=== PATIENT | female | born 1995 | race Hispanic/Latino ===

== ENCOUNTER 2017-04-28 10:12 | Emergency (ER) | payer OTHER ==
[2017-04-28] MEDS ORDERED: Dexamethasone 10 MG/ML VIAL ONE (11:00)
--- NOTE | 2017-04-28 11:29 | RAD ---
CHEST 1 VIEW: Date: 04/28/17 HISTORY: Cough. COMPARISON: 09/08/12. FINDINGS: Cardiac silhouette is magnified by projection. Pulmonary vasculature is unremarkable. Mediastinum is midline. There is no lobar consolidation or evidence of pneumothorax. Opacity at the right apex on th e previous exam is no longer evident. IMPRESSION: No active cardiopulmonary abnormalities are demonstrated. POS: H
== END 2017-04-28 12:29 | disposition home or self-care (01) ==
LOC: SCSER 10:12
DX: O99.513 Diseases of the respiratory system complicating pregnancy, third trimester (principal); J30.9 Allergic rhinitis, unspecified; Z3A.39 39 weeks gestation of pregnancy
CPT/HCPCS: 71010; 96372; J1100

== ENCOUNTER 2017-05-16 15:55 | Emergency (ER) | payer OTHER ==
[2017-05-16] MEDS ORDERED: Acetaminophen 500 MG TAB ONE (16:34)
[2017-05-16 16:51] LABS: Bilirubin Moderate (Negative); Blood, Urine Moderate (Negative); Glucose, Urine (Dipstick) Negative (Negative); Ketone, Urine 80 mg/dL (Negative); Nitrite Negative (Negative); Protein, Urine (Dipstick) 100 mg/dL (Neg-Trace); Urobilinogen 0.2 mg/dL (0.2-1.0)
[2017-05-16 17:21] LABS: Bacteria/HPF 2+ HPF (None Seen)
== END 2017-05-16 18:35 | disposition home or self-care (01) ==
LOC: SCSER 15:55
DX: O86.22 Infection of bladder following delivery (principal); O99.89 Other specified diseases and conditions complicating pregnancy, childbirth and the puerperium; R10.9 Unspecified abdominal pain; O99.53 Diseases of the respiratory system complicating the puerperium; J45.909 Unspecified asthma, uncomplicated
CPT/HCPCS: 81003; 81015; 87086; 99284

== ENCOUNTER 2018-04-07 23:02 | Emergency (ER) | payer BC, OTHER ==
[2018-04-07] MEDS ORDERED: Famotidine/PF 20 mg/2ml Vial ONE (23:25)
[2018-04-07] MEDS ORDERED: Dicyclomine 20 MG TAB ONE (23:25)
[2018-04-07] MEDS ORDERED: Metoclopramide HCl 10 MG/2 ML VIAL ONE (23:25)
[2018-04-07 23:52] LABS: #Eosinphils 0.1 thou/uL (0.0-0.7); #Lymphocytes 0.8 thou/uL (1.20-3.40); #Monocytes 0.5 thou/uL (0.11-0.59); #Neutrophils 5.2 thou/uL (1.40-6.50); %Basophils 0.6 % (0.0-1.0); %Eosinophils 0.9 % (0.0-10.0); %Lymphocytes 12.4 % (21.0-51.0); %Monocytes 7.9 % (0.0-10.0); %Neutrophils 78.2 % (42.0-75.0); Mean Corpuscular HGB CONC 33.2 g/dL (32.0-36.0); Mean Corpuscular Hemoglobin 27.9 pg (27.0-31.0); Mean Corpuscular Volume 84.1 fL (78.0-98.0); Mean Platelet Volume 10.3 fL (7.4-10.4); Platelet Count 171 thou/uL (130-400); RBC Distribution Width 12.2 % (11.5-14.5); White Blood Cell (WBC) Count 6.6 thou/uL (4.8-10.8)
[2018-04-07 23:59] LABS: BHCG - Serum Negative (NEGATIVE); Pregs Control Background? CLEAR/WHITE (CLR/WHITE); Pregs Control Bar Appear? YES (CONTROL BAR)
[2018-04-08 00:05] LABS: ALT (SGPT) 37 U/L (8-55); AST (SGOT) 22 U/L (5-34); Albumin 4.5 g/dL (3.5-5.0); Alkaline Phosphatase 65 U/L (40-150); Anion Gap 13 mmol/L (10-20); BUN (Urea Nitrogen) 8 mg/dL (7.0-18.7); Bilirubin, Total 1.1 mg/dL (0.2-1.2); Calc. Creatinine Clearance 0 mL/min (70-130); Calcium 9.1 mg/dL (7.8-10.44); Carbon Dioxide 22 mmol/L (22-29); Chloride 108 mmol/L (98-107); Estimated GFR-MDRD Greater than 90; Globulin 2.8 g/dL (2.4-3.5); Glucose 104 mg/dL (70-105); Lipase 8 U/L (8-78); Potassium 3.4 mmol/L (3.5-5.1); Protein, Total 7.3 g/dL (6.0-8.3); Sodium 140 mmol/L (136-145)
[2018-04-08] MEDS ORDERED: Ondansetron PF 4 MG/2 ML Vial ONE (00:09)
[2018-04-08 00:13] LABS: Bilirubin Small (Negative); Blood, Urine Negative (Negative); Clarity Cloudy (Clear); Glucose, Urine (Dipstick) Negative (Negative); Leukocyte Trace (Negative); Nitrite Negative (Negative); Protein, Urine (Dipstick) 30 mg/dL (Neg-Trace); Urobilinogen 0.2 mg/dL (0.2-1.0); pH, Urine 5.5 (5.0-9.0)
[2018-04-08 00:16] LABS: Specific Gravity, Urine 1.038 (1.002-1.036)
[2018-04-08 00:21] LABS: Bacteria/HPF 1+ HPF (None Seen); RBC/HPF 0-3 HPF (0-3)
[2018-04-08 00:22] LABS: Crystals/HPF 3+ AMORPH PHOS HPF (Negative); Hyaline Casts/LPF 0-3 HYALINE CAST LPF (0-3 Hyaline)
[2018-04-08] MEDS ORDERED: Nitrofurantoin Macrocrystal 50 MG CAP ONE (00:36)
== END 2018-04-08 00:50 | disposition home or self-care (01) ==
LOC: SCSER 23:02
DX: N39.0 Urinary tract infection, site not specified (principal); R11.2 Nausea with vomiting, unspecified; J45.909 Unspecified asthma, uncomplicated; R19.7 Diarrhea, unspecified; Z79.01 Long term (current) use of anticoagulants
CPT/HCPCS: 80053; 81003; 81015; 83690; 84703; 85025; 87086; 96365; 96375; J2405; J2765; S0028

== ENCOUNTER 2018-06-07 21:36 | Emergency (ER) | payer BC ==
[2018-06-07] MEDS ORDERED: Ibuprofen 200 MG TAB ONE (22:09)
== END 2018-06-07 22:54 | disposition home or self-care (01) ==
LOC: ERS 21:36
DX: J02.9 Acute pharyngitis, unspecified (principal); J45.909 Unspecified asthma, uncomplicated
CPT/HCPCS: 87081; 87430; 87804; 99283

== ENCOUNTER 2018-12-01 20:45 | Emergency (ER) | payer BC ==
[2018-12-01 21:22] LABS: #Basophils 0.1 thou/uL (0.0-0.2); #Eosinphils 0.4 thou/uL (0.0-0.7); #Lymphocytes 2.3 thou/uL (1.20-3.40); #Monocytes 0.7 thou/uL (0.11-0.59); #Neutrophils 5.8 thou/uL (1.40-6.50); %Basophils 0.8 % (0.0-1.0); %Eosinophils 3.8 % (0.0-10.0); %Lymphocytes 24.6 % (21.0-51.0); %Monocytes 7.7 % (0.0-10.0); %Neutrophils 63.1 % (42.0-75.0); Hemoglobin 12.6 g/dL (12.0-16.0); Mean Corpuscular HGB CONC 34.5 g/dL (32.0-36.0); Mean Corpuscular Hemoglobin 29.5 pg (27.0-31.0); Mean Corpuscular Volume 85.6 fL (78.0-98.0); Mean Platelet Volume 9.2 fL (7.4-10.4); Platelet Count 200 thou/uL (130-400); RBC Distribution Width 12.6 % (11.5-14.5); Red Blood Cell (RBC) Count 4.25 mill/uL (4.20-5.40); White Blood Cell (WBC) Count 9.2 thou/uL (4.8-10.8)
[2018-12-01] MEDS ORDERED: Acetaminophen 500 MG TAB ONE (21:23)
[2018-12-01] MEDS ORDERED: Metoclopramide HCl 10 MG/2 ML VIAL ONE (21:23)
[2018-12-01 21:37] LABS: ALT (SGPT) 16 U/L (8-55); AST (SGOT) 14 U/L (5-34); Albumin 4.1 g/dL (3.5-5.0); Alkaline Phosphatase 68 U/L (40-150); Anion Gap 13 mmol/L (10-20); BUN (Urea Nitrogen) 5 mg/dL (7.0-18.7); Bilirubin, Total 0.3 mg/dL (0.2-1.2); Calc. Creatinine Clearance 0 mL/min (70-130); Calcium 9.6 mg/dL (7.8-10.44); Carbon Dioxide 23 mmol/L (22-29); Chloride 105 mmol/L (98-107); Estimated GFR-MDRD Greater than 90; Globulin 3.1 g/dL (2.4-3.5); Glucose 67 mg/dL (70-105); Lipase 12 U/L (8-78); Potassium 3.7 mmol/L (3.5-5.1); Protein, Total 7.2 g/dL (6.0-8.3); Sodium 137 mmol/L (136-145)
--- NOTE | 2018-12-01 21:37 | CT ---
EXAM: CT brain without contrast HISTORY: Headache COMPARISON: None TECHNIQUE: Multiple contiguous axial images were obtained and a CT of the brain without contrast. FINDINGS: The brain is normal in morphology and attenuation without focal lesions or confluent areas of infarction. There is no evidence of hydrocephalus, intracranial hemorrhage, or extra-axial fluid collection. The calvarium and overlying soft tissues are unremarkable. The visualized paranasal sinuses and masto id air cells are well aerated. IMPRESSION: No evidence of acute intracranial abnormality
[2018-12-01 22:11] LABS: Bilirubin Negative (Negative); Blood, Urine Negative (Negative); Clarity Slightly Cloudy (Clear); Glucose, Urine (Dipstick) Negative (Negative); Leukocyte Small (Negative); Nitrite Negative (Negative); Protein, Urine (Dipstick) Negative (Neg-Trace); Urobilinogen 0.2 mg/dL (Less than 2)
[2018-12-01 22:12] LABS: Bacteria/HPF Rare-Few HPF (None Seen); RBC/HPF 0-3 HPF (0-3); Squamous Epithelial 0-3 HPF (0-3); WBC/HPF 0-3 HPF (0-3)
== END 2018-12-01 22:38 | disposition home or self-care (01) ==
LOC: SCSER 20:45
DX: O99.89 Other specified diseases and conditions complicating pregnancy, childbirth and the puerperium (principal); R51 Headache; Z3A.11 11 weeks gestation of pregnancy
CPT/HCPCS: 36415; 70450; 80053; 81003; 81015; 83690; 85025; 87086; 96365; J2765

== ENCOUNTER 2019-02-07 21:36 | Day surgery (SDC) | payer BC, OTHER ==
[2019-02-07 22:07] VITALS: BMI 36.3
--- NOTE | 2019-02-07 22:53 | PDOC.LDHP ---
Labor and Delivery H&P Chief complaint: abdominal pain HPI: 23 y/o at 22w2d, patient of Dr. Gr, presents with vulvar itching and pain, as well as epigastric pain, worse after eating. Denies VB, LOF, ctx, or other concerns. ROS neg for HEENT, cv, pulm, gi, gu, neuro, psych, skin, musculoskeletal or constitutional symptoms other than mentioned above. OB History Details: 2 prior term LTCS, hx preeclampsia Current complications: none Past Medical History: GERD Anxiety Depression Migraines Current medications: pre- vitamins Previous surgical history: low tranverse CS (x2) Allergies/Adverse Reactions: Allergies Allergy/AdvReac Type Severity Reaction Status Date / Time No Known Allergies Allergy Verified 02/07/19 22:02 Social history: none - Physical Exam Vital signs reviewed and normal: yes General: NAD, resting Lungs: nonlabored breathing Abdomen: gravid Extremeties: no edema - Vaginal Exam cm dilated: 0 Effacement: 0% Station: -3 - Assessment 23 y/o at 22w2d with likely yeast infection, VP3 pending, and GERD. + FHTs - Plan -: D/c home with precautions. Advised to keep all appointments. Discussed Monistat for treatment of yeast. Will call if VP3 results indication need for other treatment. Advised to start Zantac 150mg daily for heartburn.
--- NOTE | 2019-02-09 07:41 | PDOC.EVN ---
Event Note - Event Note Event Note: VP3 shows BV and Dyan. Dr. Gr contacted re; these results.
== END 2019-02-07 23:05 | disposition home or self-care (01) ==
LOC: L&D/OP 21:36
PROVIDERS: ATTEND Obstetrics & Gynecology
DX: O98.812 Other maternal infectious and parasitic diseases complicating pregnancy, second trimester (principal); B37.9 Candidiasis, unspecified; O23.592 Infection of other part of genital tract in pregnancy, second trimester; B96.89 Other specified bacterial agents as the cause of diseases classified elsewhere; O99.612 Diseases of the digestive system complicating pregnancy, second trimester; K21.9 Gastro-esophageal reflux disease without esophagitis; Z3A.22 22 weeks gestation of pregnancy
CPT/HCPCS: 87480; 87510; 87660; 99283

== ENCOUNTER 2019-05-28 09:47 | Inpatient (IN) | payer BC, OTHER ==
[2019-05-28] MEDS ORDERED: Ondansetron PF 4 MG/2 ML Vial IVP PRN ×3 (10:02→21:37)
[2019-05-28] MEDS ORDERED: Promethazine HCl 25 MG/ML VIAL IM PRN ×3 (10:02→21:37)
[2019-05-28] MEDS ORDERED: hydrALAZINE 20 MG/ML VIAL SLOW IVP PRN ×2 (10:02→21:37)
--- NOTE | 2019-05-28 10:07 | PDOC.LDHP ---
Labor and Delivery H&P Chief complaint: scheduled section HPI: 23 y/o at 38 and 0/7 weeks for repeat 3rd . Patient has CHTN and has done weekly testing. Current gestational age (weeks): 38 Due date: 06/11/18 Grav: 3 Para: 2 Current complications: hypertension Abnormal US findings: No Current medications: pre- vitamins Previous surgical history: low tranverse CS Allergies/Adverse Reactions: Allergies Allergy/AdvReac Type Severity Reaction Status Date / Time No Known Allergies Allergy Verified 02/07/19 22:02 Social history: none - Physical Exam Vital signs reviewed and normal: yes General: NAD Heart: RRR Lungs: CTAB Abdomen: gravid Extremeties: no edema FHT: category 1 - Assessment L&D Assessment: scheduled repeat section - Plan Plan: admit to L&D, to OR for section
[2019-05-28] MEDS ORDERED: CEFAZOLIN 2 GM in Premix Bag 1 BAG IVPB SCH (10:15)
[2019-05-28] MEDS ORDERED: Bicitra 30 ML UDCUP PO SCH (10:15)
[2019-05-28 11:07] VITALS: BMI 41.7
[2019-05-28] MEDS: Lactated Ringer's 1,000 ML IV SCH ×2 (11:20→18:54)
[2019-05-28 11:25] LABS: Hemoglobin 10.3 g/dL (12.0-16.0); Mean Corpuscular HGB CONC 33.9 g/dL (32.0-36.0); Mean Corpuscular Hemoglobin 27.1 pg (27.0-31.0); Mean Corpuscular Volume 79.9 fL (78.0-98.0); Platelet Count 243 thou/uL (130-400); RBC Distribution Width 14.1 % (11.5-14.5); Red Blood Cell (RBC) Count 3.79 mill/uL (4.20-5.40); White Blood Cell (WBC) Count 11.7 thou/uL (4.8-10.8)
[2019-05-28 12:06] LABS: Syphilis Antibody Nonreactive (Nonreactive); Syphilis Antibody Index 0.02 S/CO (<1.00 Non-Reactive)
[2019-05-28 12:07] LABS: Hep B Surf Ag Non-Reactive S/CO (NonReactive)
[2019-05-28] MEDS ORDERED: Metoclopramide HCl 10 MG/2 ML VIAL ONE (12:37)
[2019-05-28] MEDS ORDERED: ePHEDrine/0.9% NaCl/PF SYRINGE 50 mg/10 ml ONE (12:37)
[2019-05-28] MEDS ORDERED: PHENYLEPHRINE-NS 100 MCG/ML 10 ML SYRINGE ONE (12:37)
[2019-05-28] MEDS ORDERED: MORPHINE 5 MG/10 ML PF VIAL ONE (12:37)
[2019-05-28] MEDS ORDERED: Fentanyl 100 MCG/2 ML VIAL ONE (12:37)
[2019-05-28] MEDS ORDERED: Ondansetron PF 4 MG/2 ML Vial ONE (12:37)
[2019-05-28] MEDS ORDERED: Oxytocin 10 UNITS/ML VIAL ONE (12:38)
[2019-05-28] MEDS ORDERED: L&D-Morphine 4 MG/ML VIAL SLOW IVP PRN (14:27)
[2019-05-28] MEDS ORDERED: Naloxone HCl 0.4 mg/ml Vial IVP PRN ×2 (14:27)
[2019-05-28] MEDS ORDERED: Naloxone HCl 0.4 mg/ml Vial IV PRN (14:27)
[2019-05-28] MEDS ORDERED: HYDROmorphone 2 MG/ML VIAL SLOW IVP PRN (14:27)
[2019-05-28] MEDS ORDERED: Promethazine HCl 25 MG SUPP PR PRN (14:27)
[2019-05-28] MEDS ORDERED: Ondansetron HCl/PF 4 MG/2 ML Vial IVP PRN (14:27)
[2019-05-28] MEDS ORDERED: Ketorolac Tromethamine 30 MG/ML VIAL IVP SCH (14:30)
[2019-05-28] MEDS ORDERED: Communication Order-Pharmacy FS SCH (14:30)
[2019-05-28] MEDS ORDERED: NS / Oxytocin 40 units/1000ml 1,000 ML ONE (15:24)
[2019-05-28] MEDS ORDERED: Meperidine HCl/PF 25 MG/ML VIAL ONE ×2 (15:49→16:13)
[2019-05-28] MEDS: Meperidine HCl/PF 25 MG/ML VIAL SLOW IVP PRN ×2 (15:51→16:16)
[2019-05-28] MEDS: Ketorolac Tromethamine 30 MG/ML VIAL IVP PRN (17:15)
[2019-05-28] MEDS ORDERED: FLU VACC QS2019-20(6MOS UP)/PF 60 MCG/0.5 ML SYRINGE IM ONE (20:00)
[2019-05-28] MEDS ORDERED: Acetaminophen 325 MG TAB PO PRN (20:36)
[2019-05-28] MEDS ORDERED: Acetaminophen 1,000 MG in Premix Bag 1 BAG IVPB SCH (20:45)
[2019-05-28] MEDS ORDERED: Lanolin Ointment 7 GM TUBE TOP PRN (21:37)
[2019-05-28] MEDS ORDERED: Misoprostol 200 MCG TAB PR PRN (21:37)
[2019-05-28] MEDS ORDERED: Bisacodyl 10 MG SUPP PR PRN (21:37)
[2019-05-28] MEDS ORDERED: NS / Oxytocin 40 units/1000ml 1,000 ML IV SCH (21:45)
[2019-05-28] MEDS: Simethicone Chewable 80 MG TAB PO PRN (23:59)
[2019-05-29] MEDS: Ketorolac Tromethamine 30 MG/ML VIAL IVP PRN ×3 (00:07→16:57)
[2019-05-29] MEDS ORDERED: Zolpidem Tartrate 5 MG TAB PO PRN (02:30)
[2019-05-29] MEDS: HYDROcodone/Acetaminophen 5/325 mg Tablet PO PRN ×4 (03:17→21:34)
[2019-05-29] MEDS ORDERED: Sodium Chloride 0.9% 10 ML ONE (05:49)
[2019-05-29] MEDS: diphenhydrAMINE 50 MG/ML VIAL IVP PRN ×2 (05:54→14:01)
[2019-05-29 07:44] LABS: Hemoglobin 8.8 g/dL (12.0-16.0); Mean Corpuscular HGB CONC 32.5 g/dL (32.0-36.0); Mean Corpuscular Hemoglobin 26.2 pg (27.0-31.0); Mean Corpuscular Volume 80.5 fL (78.0-98.0); Mean Platelet Volume 8.7 fL (7.4-10.4); Platelet Count 194 thou/uL (130-400); RBC Distribution Width 13.9 % (11.5-14.5); Red Blood Cell (RBC) Count 3.34 mill/uL (4.20-5.40); White Blood Cell (WBC) Count 11.1 thou/uL (4.8-10.8)
[2019-05-29] MEDS: Prenatal Vitamin 1 TAB PO SCH (08:30)
[2019-05-29] MEDS: Docusate Calcium (SURFAK) 240 MG CAP PO SCH ×2 (08:30→21:36)
[2019-05-29] MEDS ORDERED: FLU VACC QS2019-20(6MOS UP)/PF 60 MCG/0.5 ML SYRINGE IM ONE (09:00)
[2019-05-29] MEDS ORDERED: Measles/Mumps/Rubella 10 MCG/0.5 ML VIAL SC ONE (09:00)
[2019-05-29] MEDS ORDERED: Varicella virus, LIVE 0.5 ML VIAL SC ONE (09:00)
[2019-05-29] MEDS ORDERED: Adacel (T-DAP) 0.5 ML SYRINGE IM ONE (09:00)
[2019-05-29] MEDS: Lactated Ringer's 1,000 ML IV SCH ×3 (11:43→18:41)
--- NOTE | 2019-05-29 13:58 | PDOC.PP ---
Post Progress Note Post Day #: 1 PO intake tolerated: yes Flatus: yes Ambulation: yes Vital Signs (12 hours) Temp Pulse Resp BP Pulse Ox 05/29/19 08:25 98.4 F 97 16 117/60 99 05/29/19 04:45 98.0 F 94 18 99/52 L 98 Weight Weight 228 lb - Physical Examination General: NAD Cardiovascular: no m/r/g, RRR Respiratory: clear to auscultation bilaterally, non-labored breathing Abdominal: + bowel sounds, no distention, appropriately TTP Extremities: negative homans (B) Skin: CS incision dry & intact, no rash Neurological: no gross focal deficits Result Diagrams: 05/29/19 07:18 Additional Labs: Post Labs Blood Type O POSITIVE 05/28/19 11:15 Hep Bs Antigen Non-Reactive S/CO (NonReactive) 05/28/19 11:15
[2019-05-29] MEDS: Simethicone Chewable 80 MG TAB PO PRN ×2 (13:59→17:14)
--- NOTE | 2019-05-29 16:13 | OP ---
DATE OF PROCEDURE: 05/28/2019 PREOPERATIVE DIAGNOSES: Intrauterine at 38 weeks and zero days with a history of previous section and chronic hypertension requiring weekly antepartum testing. POSTOPERATIVE DIAGNOSES: Intrauterine at 38 weeks and zero days with a history of previous section and chronic hypertension requiring weekly antepartum testing. PROCEDURE: Repeat low transverse section. FINDINGS: Viable female weighing 3483 g or 7 pounds 11 ounces, Apgars 9 and 9. QUANTITATIVE BLOOD LOSS: 490 mL. COMPLICATIONS: None. DETAILS OF THE PROCEDURE: The patient was consented and taken back to the operating room where spinal anesthesia was found to be adequate. She was then prepped and draped in the normal sterile fashion. A timeout was performed by the entire operative team. The incision was then marked with a marking pen tested using sharp pickups. An incision was then made with a scalpel. The incision was carried through the adipose tissue down to the underlying rectus fascia using both sharp dissection as well as cautery. Once the fascia was identified, it was incised in the midline and then the fascial incision was carried through in both lateral directions using sharp as well as cautery dissection techniques. Next, the superior aspect of the rectus fascia was grasped with 2 Irma clamps, which was tented up and the rectus muscles were dissected off using blunt dissection as well as cautery dissection. Similarly, the inferior aspect of the fascial incision was grasped with 2 Irma clamps, tented up and the rectus muscles were dissected off bluntly as well as sharply. Next, the rectus muscles were in the midline and the peritoneum identified. The peritoneum was then carefully grasped with 2 hemostats and entered sharply. The peritoneal incision was extended superiorly and inferiorly and bladder blade was placed in the lower abdomen. At this point, the uterus was identified and the bladder flap was then developed using pickups with teeth as well as Metzenbaum scissors in both lateral directions. The bladder flap was then dissected downwards using the diesel truck crane operator's finger as well as Metzenbaum scissors. The bladder blade was replaced. The lower uterine segment was then identified and entered sharply using a clean scalpel. The uterine incision was then dissected downwards until thin layer of muscle remained and this was entered bluntly using a hemostat to avoid any injury to the baby. The uterine incision was then stretched using two fingers in both lateral directions. An amniotomy was performed artificially using a hemostat and the baby was delivered using fundal pressure in a gentle fashion. Once out, the baby's mouth and nose were bulb suctioned, cord clamped and cut, and the baby was handed to waiting attendants. Next, the uterus was exteriorized, cleared of all clots and debris and the uterine incision was repaired with #1 Monocryl in a running locking fashion. A 2nd suture of the same type was used to obtain complete hemostasis at the uterine incision. The bladder flap was reapproximated using 3-0 Monocryl. Next, patient's left and right adnexa were inspected and appeared to be within normal limits. The posterior cul-de-sac was blotted dry and hemostasis assured. One more look at the uterine incision demonstrated hemostasis. Next, the uterus was replaced back within the abdomen. The peritoneum was reapproximated using 2-0 Monocryl without difficulty. The rectus muscles were then allowed to come back together and 0 chromic was used to aid in reapproximation of the muscle as necessary. The rectus fascia was then reapproximated in a running fashion using 0 Vicryl suture. The adipose tissue was then examined and appeared to be well approximated without any obvious separations. Finally, the skin was reapproximated with 3-0 Monocryl on a Maksim needle without difficulty and Dermabond adhesive was applied to the skin. Once the glue was dry, the drapes were removed and the patient was transferred to an ambulatory bed where she was taken to recovery awake and in stable condition. Sponge, lap, and needle counts were correct x3. Job ID: [id number]
[2019-05-29] MEDS: Ibuprofen 800 MG TAB PO SCH (21:34)
[2019-05-29] MEDS ORDERED: diphenhydrAMINE 25 MG CAP PO PRN (23:42)
[2019-05-30] MEDS: HYDROcodone/Acetaminophen 5/325 mg Tablet PO PRN ×5 (01:36→22:32)
[2019-05-30] MEDS: Lactated Ringer's 1,000 ML IV SCH ×3 (04:11→19:09)
[2019-05-30] MEDS: Ibuprofen 800 MG TAB PO SCH ×3 (06:28→22:29)
[2019-05-30] MEDS: Prenatal Vitamin 1 TAB PO SCH (08:41)
[2019-05-30] MEDS: Docusate Calcium (SURFAK) 240 MG CAP PO SCH ×2 (08:41→22:29)
[2019-05-31] MEDS: Simethicone Chewable 80 MG TAB PO PRN ×2 (01:02→08:14)
[2019-05-31] MEDS: Ibuprofen 800 MG TAB PO SCH (06:07)
[2019-05-31] MEDS: Prenatal Vitamin 1 TAB PO SCH (08:14)
[2019-05-31] MEDS: Docusate Calcium (SURFAK) 240 MG CAP PO SCH (08:14)
[2019-05-31] MEDS: HYDROcodone/Acetaminophen 5/325 mg Tablet PO PRN (08:15)
[2019-05-31] MEDS: Lactated Ringer's 1,000 ML IV SCH ×2 (08:16→10:42)
[2019-05-31 08:36] VITALS: BP 123/63; TEMP 97.9
== END 2019-05-31 13:10 | disposition home or self-care (01) | DRG 787 ==
LOC: L&D-LIB 09:47 → L&D 11:18 → 3SW 17:41
PROVIDERS: ADMIT Obstetrics & Gynecology; ATTEND Obstetrics & Gynecology
PROC: 10D00Z1 Extraction of Products of Conception, Low, Open Approach (ICD-10-PCS; principal; 2019-05-29)
DX: O34.211 Maternal care for low transverse scar from previous cesarean delivery (principal); O10.92 Unspecified pre-existing hypertension complicating childbirth; O16.4 Unspecified maternal hypertension, complicating childbirth; Z3A.38 38 weeks gestation of pregnancy; Z37.0 Single live birth
CPT/HCPCS: 36415; 51702; 85027; 86780; 86850; 86900; 86901; 87340; J0131; J0690; J1200; J1885; J2175; J2274; J2405; J2590; J2765; J3010; Q0163

== ENCOUNTER 2019-06-01 00:38 | Emergency (ER) | payer BC, OTHER ==
[2019-06-01 01:31] LABS: Bilirubin 2+ (Negative); Blood, Urine Trace (Negative); Clarity Clear (Clear); Glucose, Urine (Dipstick) Normal (Negative); Leukocyte Negative Leu/uL (Negative); Nitrite 2+ (Negative); Protein, Urine (Dipstick) 30 mg/dL (Neg-Trace); RBC/HPF 0-3 HPF (0-3); Urobilinogen 12 mg/dL (Less than 2); WBC/HPF 0-3 HPF (0-3)
[2019-06-01 01:32] LABS: Bacteria/HPF 1+ HPF (None Seen)
[2019-06-01] MEDS ORDERED: Ketorolac Tromethamine 30 MG/ML VIAL ONE (01:45)
[2019-06-01 01:53] LABS: #Eosinphils 0.8 thou/uL (0.0-0.7); #Monocytes 0.6 thou/uL (0.11-0.59); #Neutrophils 6.5 thou/uL (1.40-6.50); %Basophils 0.2 % (0.0-1.0); %Eosinophils 8.9 % (0.0-10.0); %Lymphocytes 11.5 % (21.0-51.0); %Monocytes 6.9 % (0.0-10.0); %Neutrophils 72.5 % (42.0-75.0); Hemoglobin 8.9 g/dL (12.0-16.0); Mean Corpuscular HGB CONC 34.3 g/dL (32.0-36.0); Mean Corpuscular Hemoglobin 27.9 pg (27.0-31.0); Mean Corpuscular Volume 81.5 fL (78.0-98.0); Mean Platelet Volume 8.3 fL (7.4-10.4); Platelet Count 257 thou/uL (130-400); RBC Distribution Width 14.5 % (11.5-14.5); Red Blood Cell (RBC) Count 3.18 mill/uL (4.20-5.40)
[2019-06-01 02:21] LABS: ALT (SGPT) 10 U/L (8-55); AST (SGOT) 16 U/L (5-34); Albumin 3.2 g/dL (3.5-5.0); Alkaline Phosphatase 138 U/L (40-110); Anion Gap 12 mmol/L (10-20); BUN (Urea Nitrogen) 6 mg/dL (7.0-18.7); Bilirubin, Total 0.3 mg/dL (0.2-1.2); Calc. Creatinine Clearance 0 mL/min (70-130); Calcium 8.8 mg/dL (7.8-10.44); Carbon Dioxide 25 mmol/L (22-29); Chloride 108 mmol/L (98-107); Estimated GFR-MDRD Greater than 90; Globulin 3.1 g/dL (2.4-3.5); Glucose 107 mg/dL (70-105); Potassium 3.7 mmol/L (3.5-5.1); Protein, Total 6.3 g/dL (6.0-8.3); Sodium 141 mmol/L (136-145)
--- NOTE | 2019-06-01 08:41 | ULT ---
PRELIMINARY REPORT/[facility]/AFTER HOURS PROCEDURE COMPLETE PELVIS ULTRASOUND: CLINICAL HISTORY: Burning pain at incision, severe pain in vaginal area and pelvic area. on 05/28/2019. TECHNIQUE: Transvaginal and transabdominal pelvic ultrasound (complete) with image documentation. COMPARISON: None provided. FINDINGS: ENDOMETRIUM: Measures 12.4 mm. UTERUS/CERVIX: No fibroid detected. Measures 14.6 x 5.9 x 11.4 cm. RIGHT OVARY: Nonvisualized. LEFT OVARY: Nonvisualized. FREE FLUID: Trace free fluid. IMPRESSION: Bulky post gravid uterus. ELECTRONICALLY SIGNED BY: Nakul Contreras MD Jun 01, 2019 3:00:57 AM MEDICAL TERMINOLOGIST This report is intended for review by the ordering physician only, in accordance of law. If you recei ve this report in error, please call [facility] at [phone]. FINAL REPORT TRANSVAGINAL AND TRANSABDOMINAL PELVIC ULTRASOUND: I agree with the preliminary report given by Dr. Nakul Contreras of [facility]. CODE QA POS: [facility]
== END 2019-06-01 03:59 | disposition home or self-care (01) ==
LOC: ERS 00:38
DX: N39.0 Urinary tract infection, site not specified (principal); R10.814 Left lower quadrant abdominal tenderness; R10.30 Lower abdominal pain, unspecified; J45.909 Unspecified asthma, uncomplicated
CPT/HCPCS: 36415; 76856; 80053; 81003; 81015; 85025; 87040; 87086; 96361; 96374; J1885

== ENCOUNTER 2019-06-14 02:56 | Emergency (ER) | payer BC, OTHER ==
[2019-06-14] MEDS ORDERED: Famotidine 20 MG TAB ONE (03:16)
[2019-06-14] MEDS ORDERED: predniSONE 20 MG TAB ONE (03:16)
== END 2019-06-14 03:21 | disposition home or self-care (01) ==
LOC: ERS 02:56
DX: L50.0 Allergic urticaria (principal); T43.225A Adverse effect of selective serotonin reuptake inhibitors, initial encounter; J45.909 Unspecified asthma, uncomplicated
CPT/HCPCS: 99283; J7512

== ENCOUNTER 2020-02-18 05:51 | Outpatient (CLI) | payer BC, OTHER ==
[2020-02-18 11:23] LABS: #Basophils 0.1 thou/uL (0.0-0.2); #Eosinphils 0.4 thou/uL (0.0-0.7); #Lymphocytes 2.1 thou/uL (1.20-3.40); #Monocytes 0.5 thou/uL (0.11-0.59); #Neutrophils 3.4 thou/uL (1.40-6.50); %Basophils 0.9 % (0.0-1.0); %Eosinophils 6.8 % (0.0-10.0); %Lymphocytes 32.6 % (21.0-51.0); %Monocytes 7.1 % (0.0-10.0); %Neutrophils 52.6 % (42.0-75.0); Hemoglobin 12.5 g/dL (12.0-16.0); Mean Corpuscular HGB CONC 32.6 g/dL (32.0-36.0); Mean Corpuscular Hemoglobin 27.4 pg (27.0-31.0); Mean Platelet Volume 8.7 fL (7.4-10.4); Platelet Count 271 thou/uL (130-400); RBC Distribution Width 13.1 % (11.5-14.5); Red Blood Cell (RBC) Count 4.56 mill/uL (4.20-5.40); White Blood Cell (WBC) Count 6.6 thou/uL (4.8-10.8)
[2020-02-18 12:04] LABS: BHCG - Serum Negative (NEGATIVE); Pregs Control Background? CLEAR/WHITE (CLR/WHITE); Pregs Control Bar Appear? YES (CONTROL BAR)
[2020-02-18 17:18] LABS: SARS-CoV-2 MS2 Positive; SARS-CoV-2 N Gene Negative; SARS-CoV-2 S Gene Negative; SARS-CoV-2 by NAA Not Detected (NotDetected); SARS-CoV-2 orf1ab Negative
== END 2020-02-18 05:52 | disposition home or self-care (01) ==
LOC: LABBT 05:51
PROVIDERS: ATTEND Orthopaedic Surgery Hand Surgery
DX: Z01.812 Encounter for preprocedural laboratory examination (principal); G56.02 Carpal tunnel syndrome, left upper limb; Z20.828 Contact with and (suspected) exposure to other viral communicable diseases
CPT/HCPCS: 84703; 85025; 87635; U0003

== ENCOUNTER 2020-02-22 11:02 | Day surgery (SDC) | payer BC, OTHER ==
[2020-02-18 10:50] VITALS: BMI 42.0
[2020-02-22] MEDS ORDERED: Bupivacaine PF 0.5% 30 ML VIAL ONE (13:22)
[2020-02-22] MEDS ORDERED: Fentanyl 100 MCG/2 ML VIAL ONE (13:23)
[2020-02-22] MEDS ORDERED: Sodium Chloride 0.9% 10 ML ONE (13:23)
[2020-02-22] MEDS ORDERED: Bacitracin Zinc Ointment 30 gm TUBE ONE (13:23)
[2020-02-22] MEDS ORDERED: Ondansetron PF 4 MG/2 ML Vial ONE (14:13)
[2020-02-22] MEDS ORDERED: Dexamethasone 20 MG/5 ML VIAL ONE (14:13)
[2020-02-22] MEDS ORDERED: PROPOFOL 200 MG/20 ML VIAL ONE (14:13)
[2020-02-22] MEDS ORDERED: Lidocaine 1% PF 5 ML VIAL ONE (14:13)
[2020-02-22] MEDS ORDERED: Ketorolac Tromethamine 30 MG/ML VIAL ONE (15:06)
--- NOTE | 2020-02-22 21:10 | OP ---
DATE OF PROCEDURE: 02/22/2020 PREOPERATIVE DIAGNOSIS: Left carpal tunnel syndrome. POSTOPERATIVE DIAGNOSIS: Left carpal tunnel syndrome. FINDINGS: Very tight transverse carpal ligament. PROCEDURE PERFORMED: Left carpal tunnel release. TOURNIQUET TIME: 11 minutes. ESTIMATED BLOOD LOSS: 10 mL. ANESTHESIA: General LMA technique by Anesthesia [facility], augmented by 10 mL of 0.5% Marcaine before incision and 10 after incision closed. DESCRIPTION OF PROCEDURE: After successful general LMA technique, the limb was prepped and draped. The patient had had time-out done appropriately, the incision outlined as far distal as Naidu's cardinal line and as far proximal as 5 mm distal to the volar wrist flexion crease. It was in line with the ring finger. We exsanguinated the limb, inflated the tourniquet to 250 mmHg pressure and made the incision described above. We carried through skin and subcutaneous tissue down to the transverse carpal ligament. We then entered the transverse carpal ligament in the central area just ulnar to the palmaris longus insertion. We then dissected down with [place] blade until we saw underlying tendinous and neural structures, then began from here distally with a combination of [place] blade and tenotomy scissors open transverse carpal ligament. All the distal nerve branches were spared. Then, from the mid point proximally using a combination of tenotomy scissors and [place] blade, we released the ramus portion of transverse carpal ligament and some palmar fascia. The patient then had the limb irrigated, tourniquet deflated, hemostasis obtained, we placed 5 mL of Celestone slowly and drip technique into the wound and then obtained hemostasis with tourniquet deflated. We then closed the incision with interrupted 4-0 nylon in a mattress pattern and the patient left the operating room without evidence of anesthetic or operative complication. Job ID: [id number]
== END 2020-02-22 15:20 | disposition home or self-care (01) ==
LOC: SDC 11:02
PROVIDERS: ATTEND Orthopaedic Surgery Hand Surgery
PROC: 01N50ZZ Release Median Nerve, Open Approach (ICD-10-PCS; principal; 2020-02-22)
DX: G56.03 Carpal tunnel syndrome, bilateral upper limbs (principal); F32.9 Major depressive disorder, single episode, unspecified; J45.909 Unspecified asthma, uncomplicated; Z79.899 Other long term (current) drug therapy; Z88.2 Allergy status to sulfonamides; Z88.8 Allergy status to other drugs, medicaments and biological substances
CPT/HCPCS: J0690; J1100; J1885; J2405; J2704; J3010; J3490; S0020

== ENCOUNTER 2021-10-05 13:45 | Outpatient (CLI) | payer BC, OTHER ==
[2021-10-05 14:53] LABS: #Eosinphils 0.6 10x3/uL (0.0-0.5); #Monocytes 0.6 10x3/uL (0.0-1.1); #Neutrophils 5.8 10x3/uL (1.5-8.4); %Basophils 0.4 % (0.0-2.0); %Eosinophils 6.2 % (0.0-6.0); %Lymphocytes 21.3 % (18.0-47.0); %Monocytes 6.8 % (0.0-10.0); Hemoglobin 12.3 g/dL (12.0-15.5); Mean Corpuscular HGB CONC 32.2 g/dL (32.0-36.0); Mean Corpuscular Hemoglobin 28.5 pg (27.0-33.0); Mean Corpuscular Volume 88.6 fl (81.6-98.3); Mean Platelet Volume 10.6 fl (7.4-10.4); Platelet Count 308 10x3/uL (150-450); RBC Distribution Width 12.6 % (11.5-14.5); Red Blood Cell (RBC) Count 4.31 10x6/uL (3.90-5.03); White Blood Cell (WBC) Count 8.9 10x3/uL (3.5-10.5)
[2021-10-05 15:03] LABS: BHCG - Serum Negative (NEGATIVE); Pregs Control Background? CLEAR/WHITE (CLR/WHITE); Pregs Control Bar Appear? YES (CONTROL BAR)
[2021-10-06 12:37] LABS: SARS-CoV-2 PCR by NAA Not Detected (NotDetected)
== END 2021-10-05 13:46 | disposition home or self-care (01) ==
LOC: LABBT 13:45
PROVIDERS: ATTEND Orthopaedic Surgery Hand Surgery
DX: Z01.812 Encounter for preprocedural laboratory examination (principal); G56.01 Carpal tunnel syndrome, right upper limb; M65.331 Trigger finger, right middle finger; Z20.822 Contact with and (suspected) exposure to COVID-19
CPT/HCPCS: 84703; 85025; U0003; U0005

== ENCOUNTER 2021-10-09 06:38 | Day surgery (SDC) | payer BC, OTHER ==
[2021-10-04 13:29] VITALS: BMI 42.7
[2021-10-09 08:06] LABS: Hemoglobin 12.6 g/dL (12.0-16.0); Mean Corpuscular HGB CONC 32.8 g/dL (32.0-36.0); Mean Corpuscular Hemoglobin 29.4 pg (27.0-31.0); Mean Corpuscular Volume 89.8 fL (78.0-98.0); Mean Platelet Volume 8.1 fL (7.4-10.4); Platelet Count 273 thou/uL (130-400); RBC Distribution Width 12.2 % (11.5-14.5); Red Blood Cell (RBC) Count 4.29 mill/uL (4.20-5.40); White Blood Cell (WBC) Count 9.4 thou/uL (4.8-10.8)
== END 2021-10-09 08:44 | disposition home or self-care (01) ==
LOC: SDC 06:38
PROVIDERS: ATTEND Orthopaedic Surgery Hand Surgery
DX: G56.01 Carpal tunnel syndrome, right upper limb (principal); M65.331 Trigger finger, right middle finger; Z53.20 Procedure and treatment not carried out because of patient's decision for unspecified reasons
CPT/HCPCS: 71046; 85027

== ENCOUNTER 2021-10-19 09:45 | Outpatient (CLI) | payer BC, OTHER ==
[2021-10-19 10:20] LABS: #Basophils 0.1 10x3/uL (0.0-0.2); #Eosinphils 0.4 10x3/uL (0.0-0.5); #Monocytes 0.6 10x3/uL (0.0-1.1); #Neutrophils 4.1 10x3/uL (1.5-8.4); %Basophils 0.7 % (0.0-2.0); %Eosinophils 5.3 % (0.0-6.0); %Lymphocytes 30.2 % (18.0-47.0); %Monocytes 8.2 % (0.0-10.0); %Neutrophils 55.2 % (40.0-75.0); Hemoglobin 11.8 g/dL (12.0-15.5); Mean Corpuscular HGB CONC 32.3 g/dL (32.0-36.0); Mean Corpuscular Hemoglobin 28.3 pg (27.0-33.0); Mean Corpuscular Volume 87.5 fl (81.6-98.3); Platelet Count 311 10x3/uL (150-450); RBC Distribution Width 12.1 % (11.5-14.5); Red Blood Cell (RBC) Count 4.17 10x6/uL (3.90-5.03); White Blood Cell (WBC) Count 7.4 10x3/uL (3.5-10.5)
[2021-10-19 10:32] LABS: BHCG - Serum Negative (NEGATIVE); Pregs Control Background? CLEAR/WHITE (CLR/WHITE); Pregs Control Bar Appear? YES (CONTROL BAR)
[2021-10-19 18:41] LABS: SARS-CoV-2 PCR by NAA Not Detected (NotDetected)
== END 2021-10-19 09:46 | disposition home or self-care (01) ==
LOC: LABBT 09:45
PROVIDERS: ATTEND Orthopaedic Surgery Hand Surgery
DX: Z01.812 Encounter for preprocedural laboratory examination (principal); G56.01 Carpal tunnel syndrome, right upper limb; M65.331 Trigger finger, right middle finger; Z20.822 Contact with and (suspected) exposure to COVID-19
CPT/HCPCS: 84703; 85025; U0003; U0005

== ENCOUNTER 2021-10-23 05:48 | Day surgery (SDC) | payer BC, OTHER ==
[2021-10-19 12:49] VITALS: BMI 43.0
[2021-10-23] MEDS ORDERED: Bacitracin Zinc Ointment 30 gm TUBE ONE (06:11)
[2021-10-23] MEDS ORDERED: Neomycin-Polymyxin 1 ML AMP ONE (06:11)
[2021-10-23] MEDS ORDERED: Betamet Acet/Betamet Na Ph 30 MG/5 ML VIAL ONE (06:11)
[2021-10-23] MEDS ORDERED: Bupivacaine PF 0.5% 30 ML VIAL ONE (06:11)
[2021-10-23] MEDS ORDERED: Midazolam HCl 2 mg/2 ml Vial ONE (06:18)
[2021-10-23] MEDS ORDERED: HYDROmorphone 2 MG/ML VIAL ONE (06:18)
[2021-10-23] MEDS ORDERED: Sodium Chloride 0.9% 100 ML ONE (06:55)
[2021-10-23] MEDS ORDERED: CEFAZOLIN 2 GM VIAL ONE (06:55)
[2021-10-23] MEDS ORDERED: Lidocaine 1% PF 5 ML VIAL ONE (07:16)
[2021-10-23] MEDS ORDERED: PROPOFOL 200 MG/20 ML VIAL ONE (07:16)
[2021-10-23] MEDS ORDERED: Dexamethasone 20 MG/5 ML VIAL ONE (07:16)
[2021-10-23] MEDS ORDERED: Ketorolac Tromethamine 30 MG/ML VIAL ONE (07:16)
[2021-10-23] MEDS ORDERED: Ondansetron PF 4 MG/2 ML Vial ONE (07:16)
== END 2021-10-23 09:45 | disposition home or self-care (01) ==
LOC: SDC 05:48
PROVIDERS: ATTEND Orthopaedic Surgery Hand Surgery
PROC: 0LB70ZZ Excision of Right Hand Tendon, Open Approach (ICD-10-PCS; principal; 2021-10-23)
PROC: 01N50ZZ Release Median Nerve, Open Approach (ICD-10-PCS; principal; 2021-10-23)
PROC: 0LN70ZZ Release Right Hand Tendon, Open Approach (ICD-10-PCS; principal; 2021-10-23)
DX: G56.01 Carpal tunnel syndrome, right upper limb (principal); M65.331 Trigger finger, right middle finger; Z88.2 Allergy status to sulfonamides; Z98.890 Other specified postprocedural states
CPT/HCPCS: 88305; J0702; J1100; J1170; J1885; J2250; J2405; J2704; J3490; S0020

== ENCOUNTER 2022-01-21 10:11 | Outpatient (CLI) | payer OTHER | END 2022-01-21 10:12 | disposition home or self-care (01) | LOC: SCSMRI 10:11 | PROVIDERS: ATTEND Family Medicine | DX: M54.12 Radiculopathy, cervical region (principal) | CPT/HCPCS: 72040; 72141 ==